=== PATIENT | male | born 1970 ===

== ENCOUNTER 2019-12-25 09:01 | Outpatient (CLI) | payer MEDICAID ==
[~2019-12-25] VITALS: Ht 175.3 cm; Wt 91.6 kg
[2019-12-25 11:00] VITALS: BP_SYST 123; BP_SYST 134; BP_DIAS 70; BP_DIAS 78
[2019-12-25] MEDS ORDERED: PROBIOTIC1 EAC2 PO (15:02)
[2019-12-25] MEDS ORDERED: MAGNESIUM400 M1 PO (15:02)
[2019-12-25] MEDS ORDERED: MULTI VITAMIN1 EACH ORAL (15:02)
[2019-12-25] MEDS ORDERED: ZYRTEC10 MG ORAL (15:02)
[2019-12-25] MEDS ORDERED: SPIRONOLACTONE25 MG ORAL (15:02)
[2019-12-25] MEDS ORDERED: VIIBRYD10 MG PO (15:02)
--- NOTE | 2019-12-25 20:45 | Consultation ---
DATE OF CONSULTATION: 12/25/2019 CONSULTING PHYSICIAN: Malik Anton M.D. REFERRING PHYSICIAN: Dr. Rankin. CHIEF COMPLAINT: Rectal bleeding. HISTORY OF PRESENT ILLNESS: This is a 49-year-old male, who is referred to us by Dr. Rankin for evaluation of rectal bleeding. PAST MEDICAL HISTORY: None. PAST SURGICAL HISTORY: None. MEDICATIONS: None. FAMILY HISTORY: Mother had hypertension and diabetes. SOCIAL HISTORY: The patient socially drinks alcohol, but denies any IV drug abuse or tobacco abuse. ALLERGIES: No known allergies. REVIEW OF SYSTEMS: Positive for rectal bleeding and GERD. PHYSICAL EXAMINATION: VITAL SIGNS: Temperature 98.6, blood pressure 134/78, pulse , and respirations 20. HEENT: Normocephalic and atraumatic. Sclerae are anicteric. NECK: Supple. No evidence of obvious lymphadenopathy. CARDIOVASCULAR: Regular rate and rhythm. Plus S1 and S2. LUNGS: Clear to auscultation bilaterally. ABDOMEN: Positive bowel sounds. Soft and nontender. No rebound. No guarding. No peritoneal sign. EXTREMITIES: No cyanosis. No clubbing. No edema. LABORATORY DATA: Not available. ASSESSMENT AND PLAN: This is a 49-year-old male with rectal bleeding, needing colonoscopy. The patient was given information about colonoscopy. Prep was explained to him. Risks and benefits of procedure was explained to him. We will plan to schedule when the authorization is obtained. I want to thank Dr. Rankin for this kind referral. Malik Anton M.D. DR: MICHELLE JOB#: [id number] CC: Dr. Rankin
== END 2019-12-25 13:37 | disposition home or self-care (01) ==
LOC: PAN 09:01
DX: K62.5 Hemorrhage of anus and rectum (principal); K21.9 Gastro-esophageal reflux disease without esophagitis
CPT/HCPCS: G0463

== ENCOUNTER 2020-04-03 11:50 | Outpatient (CLI) | payer MEDICAID ==
[~2020-04-03 11:50] MED LIST: MAGNESIUM400 M1 PO; MULTI VITAMIN1 EACH ORAL; PROBIOTIC1 EAC2 PO; SPIRONOLACTONE25 MG ORAL; VIIBRYD10 MG PO; ZYRTEC10 MG ORAL
--- NOTE | 2020-04-03 12:46 | General Progress Note ---
Assessment/Plan Assessment/Plan: one colon polyp poor prep plan repeat colonoscopy in 3 years Subjective ROS Limited/Unobtainable: No Allergies: Coded Allergies: No Known Allergies (Unverified , 12/25/19) Objective General Appearance: alert EENT: normal ENT inspection Neck: supple Cardiovascular: normal rate Respiratory/Chest: decreased breath sounds Abdomen: normal bowel sounds, non tender, soft Extremities: non-tender Malik Anton MD April 03, 2020 12:46
[2020-04-03 15:24] VITALS: BP 142/90
== END 2020-04-03 13:50 | disposition home or self-care (01) ==
LOC: PAN 11:50
DX: K63.5 Polyp of colon (principal)
CPT/HCPCS: 99212